=== PATIENT | female | born 1965 | race Caucasian/White ===

== ENCOUNTER 2017-04-13 16:44 | Emergency (ER) | payer MEDICAID, OTHER ==
[~2017-04-13] VITALS: Ht 165.1 cm; Wt 63.2 kg
[2017-04-13] MEDS ORDERED: VENL75CA47 PO (17:01)
[2017-04-13] MEDS ORDERED: BENA25CA4 PO (18:40)
[2017-04-13] MEDS ORDERED: ERYTOIN8 TOP (18:40)
[2017-04-13 18:56] VITALS: BP 110/78
== END 2017-04-13 18:57 | disposition home or self-care (01) ==
LOC: M ED 16:44
DX: H01.002 Unspecified blepharitis right lower eyelid (principal); F17.200 Nicotine dependence, unspecified, uncomplicated; Z79.899 Other long term (current) drug therapy